=== PATIENT | male | born 1955 | race Caucasian/White ===

== ENCOUNTER 2020-10-11 23:41 | Emergency (ER) | payer OTHER ==
[~2020-10-11] VITALS: Ht 182.9 cm; Wt 90.7 kg
[~2020-10-11 23:41] MED LIST: ATOR10; AZIT250 PO; HYDGUAL120 PO; Keflex500 MG PO; Norco 5-325 Ta1 EACH PO; Pepcid40 MG PO; ROSU10TA PO; Vibramycin100 MG PO
== END 2020-10-12 01:24 | disposition home or self-care (01) ==
LOC: ER 23:41
DX: S80.02XA Contusion of left knee, initial encounter (principal); E78.5 Hyperlipidemia, unspecified; Z88.2 Allergy status to sulfonamides; Z88.1 Allergy status to other antibiotic agents; W01.0XXA Fall on same level from slipping, tripping and stumbling without subsequent striking against object, initial encounter
CPT/HCPCS: 73564; 99283-25; A9270